=== PATIENT | male | born 1945 | race Caucasian/White ===

== ENCOUNTER 2017-02-17 08:14 | Outpatient (CLI) | payer MEDICARE | END 2017-02-17 08:15 | disposition home or self-care (01) | DX: E78.5 Hyperlipidemia, unspecified (principal); Z12.5 Encounter for screening for malignant neoplasm of prostate | CPT/HCPCS: 36415; 80053; 80061; 85025; G0103 ==

== ENCOUNTER 2017-07-20 08:54 | Outpatient (CLI) | payer MEDICARE | END 2017-07-20 08:55 | disposition home or self-care (01) | LOC: SC 08:54 | PROVIDERS: ATTEND Specialist | DX: R06.83 Snoring (principal); G47.8 Other sleep disorders; G47.30 Sleep apnea, unspecified; G47.10 Hypersomnia, unspecified; K21.9 Gastro-esophageal reflux disease without esophagitis | CPT/HCPCS: 99205; G0463; 99212 ==

== ENCOUNTER 2018-09-12 08:00 | Outpatient (CLI) | payer MEDICARE ==
[2018-09-12 18:54] LABS: BASOPHILS # (AUTO) 0.1 10^3/uL (0.0-0.1); BASOPHILS % (AUTO) 0.8 %; EOSINOPHILS # (AUTO) 0.3 10^3/uL (0.0-0.7); EOSINOPHILS % (AUTO) 3.5 %; HGB - HEMOGLOBIN 15.6 g/dL (14.0-18.0); LYMPHOCYTES # (AUTO) 1.8 10^3/uL (1.5-3.5); LYMPHOCYTES % (AUTO) 24.7 %; MEAN CORPUSCULAR HEMOGLOBIN 30.8 pg (27.0-31.0); MEAN CORPUSCULAR HGB CONC 34.4 g/dL (32.0-36.0); MEAN CORPUSCULAR VOLUME 89.5 fL (80.0-94.0); MEAN PLATELET VOLUME 9.4 fL (7.4-11.4); MONOCYTES # (AUTO) 0.6 10^3/uL (0.0-1.0); MONOCYTES % (AUTO) 8.3 %; NEUTROPHILS # (AUTO) 4.6 10^3/uL (1.5-6.6); NEUTROPHILS % (AUTO) 62.7 %; PLT - PLATELET COUNT 271 10^3/uL (130-450); RED BLOOD COUNT 5.07 10^6/uL (4.70-6.10); RED CELL DISTRIBUTION WIDTH 13.2 % (12.0-15.0); WHITE BLOOD COUNT 7.3 x10^3/uL (4.8-10.8)
[2018-09-12 19:10] LABS: ALBUMIN 4.2 g/dL (3.2-5.5); ALBUMIN/GLOBULIN RATIO 1.4 (1.0-2.2); ALKALINE PHOSPHATASE 77 IU/L (42-121); ALT ALANINE AMINOTRANSFERASE 29 IU/L (10-60); AST ASPARTATE AMINOTRANSFERASE 21 IU/L (10-42); BUN - BLOOD UREA NITROGEN 22 mg/dL (6-20); CALCIUM 8.8 mg/dL (8.5-10.3); CARBON DIOXIDE - CO2 26 mmol/L (21-32); CHLORIDE 104 mmol/L (101-111); CHOL/HDL RATIO 4.6 (<5.0); CHOLESTEROL 203 mg/dL; CREATININE 0.8 mg/dL (0.6-1.2); GFR - MDRD 95 (>89); GLUCOSE 103 mg/dL (70-100); HDL CHOLESTEROL 44 mg/dL; LDL CHOLESTEROL,CALCULATED 100 mg/dL; LDL/HDL RATIO 2.3 (<3.6); SODIUM 139 mmol/L (135-145); TOTAL PROTEIN 7.3 g/dL (6.7-8.2); VLDL CHOLESTEROL 59 mg/dL
== END 2018-09-12 23:59 ==
LOC: LAB.WCP 08:00
PROVIDERS: ATTEND Family Medicine
DX: E78.5 Hyperlipidemia, unspecified (principal); N40.1 Benign prostatic hyperplasia with lower urinary tract symptoms
CPT/HCPCS: 36415; 80053; 80061; 85025; G0103; 83721; 84153

== ENCOUNTER 2018-11-24 08:00 | Outpatient (CLI) | payer MEDICARE ==
[2018-11-24 12:54] LABS: BASOPHILS # (AUTO) 0.1 10^3/uL (0.0-0.1); BASOPHILS % (AUTO) 0.9 %; EOSINOPHILS # (AUTO) 0.2 10^3/uL (0.0-0.7); EOSINOPHILS % (AUTO) 2.6 %; HGB - HEMOGLOBIN 16.6 g/dL (14.0-18.0); LYMPHOCYTES # (AUTO) 2.1 10^3/uL (1.5-3.5); LYMPHOCYTES % (AUTO) 25.2 %; MEAN CORPUSCULAR HEMOGLOBIN 30.5 pg (27.0-31.0); MEAN CORPUSCULAR VOLUME 87.1 fL (80.0-94.0); MEAN PLATELET VOLUME 9.6 fL (7.4-11.4); MONOCYTES # (AUTO) 0.6 10^3/uL (0.0-1.0); MONOCYTES % (AUTO) 7.6 %; NEUTROPHILS # (AUTO) 5.3 10^3/uL (1.5-6.6); NEUTROPHILS % (AUTO) 63.7 %; PLT - PLATELET COUNT 266 10^3/uL (130-450); RED BLOOD COUNT 5.45 10^6/uL (4.70-6.10); RED CELL DISTRIBUTION WIDTH 12.9 % (12.0-15.0); WHITE BLOOD COUNT 8.3 x10^3/uL (4.8-10.8)
[2018-11-24 13:07] LABS: TROPONIN I < 0.04 ng/mL (<0.49)
[2018-11-24 13:09] LABS: CREATINE KINASE MB 2.4 ng/mL (0.6-6.3)
[2018-11-24 13:12] LABS: ALBUMIN 3.8 g/dL (3.2-5.5); ALBUMIN/GLOBULIN RATIO 1.2 (1.0-2.2); BILIRUBIN,TOTAL 0.8 mg/dL (0.2-1.0); CALCIUM 9.1 mg/dL (8.5-10.3); CREATININE 0.9 mg/dL (0.6-1.2)
== END 2018-11-24 23:59 | disposition home or self-care (01) ==
LOC: LAB.WCP 08:00
PROVIDERS: ATTEND Family Medicine
DX: R06.09 Other forms of dyspnea (principal)
CPT/HCPCS: 36415; 80053; 82553; 84443; 84484; 85025; 85379

== ENCOUNTER 2018-12-28 08:37 | Outpatient (CLI) | payer MEDICARE ==
[2018-12-28] MEDS ORDERED: REGADENOSON 0.4 MG/5 ML SYRINGE IVP ONE ×2 (09:22→15:40)
--- NOTE | 2018-12-28 12:33 | CARDIAC PROCEDURE NOTE ---
DATE OF SERVICE: 12/28/2018 Physician: Patricia Scott MD, [facility] INDICATION: Dyspnea on exertion. CARDIAC RISK FACTORS 1. Male gender. 2. Hyperlipidemia. PROCEDURE: After signing informed consent, the patient underwent a pharmaceutical stress test with nuclear myocardial perfusion imaging. RESTING HEART RATE: 79. Peak heart rate: 101. RESTING BLOOD PRESSURE: 102/60. Peak blood pressure: 120/68. The patient underwent Lexiscan infusion. He had no side effects, except mild nausea. Oxygen saturation was 96% at peak on room air. RESTING EKG: Normal sinus rhythm, right bundle branch block, left anterior fascicular block. EKG AT [facility]: No new ischemic changes per EKG criteria. SUMMARY 1. Abnormal resting EKG. 2. No ischemic changes by EKG criteria on this pharmaceutical stress test. 3. Nuclear images reported separately. cc: Haja Thompson MD TD: 12/28/2018 12:05 MTDD
--- NOTE | 2018-12-28 16:49 | Nuclear Medicine Report ---
Reason: SORIANO Procedure Date: 12/28/2018 Accession Number: [id number] / [id number] Procedure: NM - Myocardial Perfusion STR/RST CPT Code: FULL RESULT: EXAM: SINGLE-ISOTOPE PHARMACOLOGICAL STRESS TEST WITH REGADENOSON. SINGLE-ISOTOPE AND ONE-DAY REST/STRESS MYOCARDIAL PERFUSION SCANS WITH TOMOGRAPHIC IMAGING, QUANTITATIVE ANALYSIS, WALL MOTION ANALYSIS AND CALCULATION OF EJECTION FRACTION. EXAM DATE: 12/28/2018 03:24 PM. CLINICAL HISTORY: Dyspnea on exertion. COMPARISON: None available. TECHNIQUE: After the intravenous administration of 10.6 mCi of Tc-99m sestamibi, a rest myocardial perfusion scan was done with tomography. Motion correction was applied when appropriate. After an appropriate delay, pharmacological stress was performed with the infusion of 0.4 mg regadenoson per protocol. According to protocol, 43.9 mCi of Tc-99m sestamibi was injected for stress myocardial perfusion scan. Motion correction was applied when appropriate. Gated tomographic images were obtained for wall motion analysis and computation of left ventricular ejection fraction. FINDINGS: On visual analysis, there is a partially fixed and partially reversible anteroseptal wall perfusion defect. There is decreased activity in the inferior wall, more severe on the rest images compared to the stress images. There is a moderate severity, partially fixed and partially reversible proximal to mid inferolateral wall defect. Computer analysis: Sum stress score 11 Summed rest score 7 Summed difference score 4 Wall motion analysis demonstrates no focal wall motion abnormality. The left ventricular end-diastolic volume is 62 cc. The left ventricular end-systolic volume is 10 cc. The left ventricular ejection fraction is calculated to be 84%. IMPRESSION: 1. On visual analysis, there is a moderate severity partially fixed and partially reversible anteroseptal wall perfusion defect. There is a moderate severity partially fixed and partially reversible proximal to mid inferolateral wall perfusion defect. There is a distal inferior wall perfusion defect which appears more severe on the rest images compared to the stress images. 2. Left ventricular ejection fraction of >65%. 3. Normal segmental and global wall motion. 4. Normal left ventricular cavity size, no change with stress. 5. Based on computer analysis, moderately abnormal study with mild ischemia. [facility]
== END 2018-12-28 08:38 | disposition home or self-care (01) ==
LOC: DI 08:37
PROVIDERS: ATTEND Family Medicine
DX: R06.09 Other forms of dyspnea (principal); R94.31 Abnormal electrocardiogram [ECG] [EKG]
CPT/HCPCS: 78452; 93016; 93017; 93018; A9500; J2785

== ENCOUNTER 2019-01-19 09:03 | Outpatient (CLI) | payer MEDICARE ==
[~2019-01-19 09:03] MED LIST: ALBUTEROL NEB 2.5 MG/3 ML INH ONE
== END 2019-01-19 09:04 | disposition home or self-care (01) ==
LOC: RT 09:03
PROVIDERS: ATTEND Family Medicine
DX: R06.09 Other forms of dyspnea (principal)
CPT/HCPCS: 94010; 94729

== ENCOUNTER 2019-09-21 10:16 | Outpatient (CLI) | payer OTHER, MEDICARE ==
--- NOTE | 2019-09-22 13:44 | XRAY Report ---
Reason: THORACIC BACK PAIN Procedure Date: 09/21/2019 Accession Number: [id number] / [id number] Procedure: XRN - Thoracic Spine 3 View CPT Code: Final Report FULL RESULT: EXAM: THORACIC SPINE RADIOGRAPHY EXAM DATE: 09/21/2019 11:00 AM. CLINICAL HISTORY: THORACIC BACK PAIN. COMPARISON: 09/21/2019 12:37 PM. TECHNIQUE: 2 views. FINDINGS: Alignment: Normal. No spondylolisthesis or scoliosis. Bones: No fractures or bone lesions. Disks: Multilevel moderate disk height loss with disk osteophytes. Soft Tissues: Normal. The visualized lungs and cardiomediastinal silhouette are normal. IMPRESSION: 1. No evidence for acute fracture or dislocation of the thoracic spine. 2. Multilevel moderate degenerative changes in the thoracic spine. [facility]
== END 2019-09-21 10:17 | disposition home or self-care (01) ==
LOC: DI.N 10:16
PROVIDERS: ATTEND Family Medicine
DX: M51.34 Other intervertebral disc degeneration, thoracic region (principal)
CPT/HCPCS: 72072

== ENCOUNTER 2019-09-26 10:03 | Outpatient (CLI) | payer OTHER, MEDICARE ==
--- NOTE | 2019-09-26 16:10 | XRAY Report ---
Reason: ABDOMINAL DISCOMFORT Procedure Date: 09/26/2019 Accession Number: [id number] / [id number] Procedure: XRN - Abdomen 2 View X-Ray CPT Code: 56517 Final Report FULL RESULT: EXAM: ABDOMEN RADIOGRAPHY EXAM DATE: 09/26/2019 10:38 AM. CLINICAL HISTORY: Abdominal discomfort. COMPARISON: None. TECHNIQUE: 2 views. FINDINGS: Lung Bases: Unremarkable. Bowel Gas Pattern: Overall paucity of small bowel gas with air-fluid level seen in the stomach. Normal stool content is seen within the ascending colon. No significant stool burden is seen in the descending, sigmoid colon or rectal vault. This bowel gas pattern is formally nonobstructive but very early small bowel obstruction would be difficult to exclude. Free Air: None. Other: None. IMPRESSION: Formally nonobstructive bowel gas pattern as described. Early bowel obstruction would be difficult to exclude. Recommendation: In the setting of traumatic injury 4 days ago with 30 pound weight gain and hard distended abdomen, the radiographic absence of bowel gas with absence of free air is most concerning for injured solid organ injury such as splenic laceration or genitourinary compromise with urinoma. CT abdomen pelvis with intravenous contrast should be considered unless the physical examination is reassuring. [facility]
== END 2019-09-26 10:04 | disposition home or self-care (01) ==
LOC: DI.N 10:03
PROVIDERS: ATTEND Family Medicine
DX: R10.9 Unspecified abdominal pain (principal)
CPT/HCPCS: 74019

== ENCOUNTER 2019-10-06 14:03 | Outpatient (CLI) | payer MEDICARE, OTHER ==
--- NOTE | 2019-10-06 15:28 | XRAY Report ---
Reason: RIB PAIN, RIGHT SIDED/FOOT PAIN, LEFT Procedure Date: 10/06/2019 Accession Number: [id number] / [id number] Procedure: XR - Foot 3 View LT CPT Code: Final Report FULL RESULT: EXAM: LEFT FOOT RADIOGRAPHY EXAM DATE: 10/06/2019 03:04 PM. CLINICAL HISTORY: RIB PAIN, RIGHT SIDED/FOOT PAIN, LEFT. COMPARISON: FOOT 2 VIEW RT 08/09/2018 9:30 AM. TECHNIQUE: 3 views. FINDINGS: Bones: Pes planus No fractures or bone lesions. Joints: First metatarsophalangeal joint osteophyte, mild joint space narrowing. Dorsal spurring metatarsal tarsal junction Soft Tissues: Normal. No soft tissue swelling. IMPRESSION: Mild DJD first metatarsophalangeal joint RAD[facility]
--- NOTE | 2019-10-06 15:33 | XRAY Report ---
Reason: RIGHT SIDED RIB PAIN Procedure Date: 10/06/2019 Accession Number: [id number] / [id number] Procedure: XR - Ribs w/PA Chest RT CPT Code: Final Report FULL RESULT: EXAM: RIGHT RIB RADIOGRAPHY EXAM DATE: 10/06/2019 03:05 PM. CLINICAL HISTORY: Fall, pain. COMPARISON: THORACIC SPINE 3 VIEW 09/21/2019 11:00 AM CHEST 2 VIEW PA/LAT 11/24/2018 8:58 AM. TECHNIQUE: 1 view of the chest and 2 views of the ribs. FINDINGS: Bones: Minimally displaced fractures of right posterior seventh, eighth, ninth, and 10th ribs. Degenerative changes. Lungs: Clear. No effusion or pneumothorax. Mild atelectasis in right mid lung zone. Mediastinum: Heart and mediastinal contours are unremarkable. Upper lobe vessels not distended. Other: None. IMPRESSION: Multiple right rib fractures. [facility]
== END 2019-10-06 14:04 | disposition home or self-care (01) ==
LOC: DI 14:03
PROVIDERS: ATTEND Family Medicine
DX: S22.41XA Multiple fractures of ribs, right side, initial encounter for closed fracture (principal); M19.072 Primary osteoarthritis, left ankle and foot

== ENCOUNTER 2019-10-17 13:03 | Outpatient (CLI) | payer OTHER ==
--- NOTE | 2019-10-18 09:34 | XRAY Report ---
Reason: localized swelling, mas and lump neck Procedure Date: 10/17/2019 Accession Number: [id number] / [id number] Procedure: XRN - Cervical Spine 2 View CPT Code: Final Report FULL RESULT: EXAM: CERVICAL SPINE RADIOGRAPHY EXAM DATE: 10/17/2019 01:20 PM. CLINICAL HISTORY: Localized swelling, mass and lump neck. COMPARISONS: None. TECHNIQUE: 3 views. FINDINGS: Alignment: There is straightening of the normal cervical lordosis with no listhesis or scoliosis. Odontoid view is within normal limits. Bones: The cervical vertebral bodies and posterior elements are well visualized from the skull base through C7-T1. No fractures or bone lesions. Disks: There are multilevel degenerative changes with loss of disk space height and marginal osteophytosis which are most pronounced at C3, C4 and C5, at least moderate. Facets: The mid lower cervical spine demonstrates prominent facet arthropathy and lateral mass hypertrophy Soft Tissues: Normal. No prevertebral soft tissue swelling. The visualized lung apices are clear. IMPRESSION: Degenerative changes as described. [facility]
== END 2019-10-17 13:04 | disposition home or self-care (01) ==
LOC: DI.N 13:03
PROVIDERS: ATTEND Family Medicine
DX: M50.31 Other cervical disc degeneration, high cervical region (principal); M47.812 Spondylosis without myelopathy or radiculopathy, cervical region
CPT/HCPCS: 72040

== ENCOUNTER 2019-12-29 08:47 | Outpatient (CLI) | payer OTHER ==
[2019-12-29 13:06] LABS: BASOPHILS % (AUTO) 0.6 %; EOSINOPHILS # (AUTO) 0.5 10^3/uL (0.0-0.7); EOSINOPHILS % (AUTO) 8.5 %; HGB - HEMOGLOBIN 15.8 g/dL (14.0-18.0); LYMPHOCYTES # (AUTO) 1.7 10^3/uL (1.5-3.5); LYMPHOCYTES % (AUTO) 27.4 %; MEAN CORPUSCULAR HGB CONC 32.6 g/dL (32.0-36.0); MEAN PLATELET VOLUME 10.8 fL (7.4-11.4); MONOCYTES # (AUTO) 0.6 10^3/uL (0.0-1.0); MONOCYTES % (AUTO) 9.9 %; NEUTROPHILS # (AUTO) 3.3 10^3/uL (1.5-6.6); NEUTROPHILS % (AUTO) 53.1 %; PLT - PLATELET COUNT 282 10^3/uL (130-450); RED BLOOD COUNT 5.45 10^6/uL (4.70-6.10); RED CELL DISTRIBUTION WIDTH 12.9 % (12.0-15.0); WHITE BLOOD COUNT 6.2 x10^3/uL (4.8-10.8)
[2019-12-29 13:22] LABS: HB2 TOTAL 16.2 g/dL; HEMOGLOBIN A1C 0.58 g/dL; HEMOGLOBIN A1C % 5.4 % (4.6-6.2)
[2019-12-29 13:27] LABS: ALBUMIN 4.3 g/dL (3.2-5.5); ALBUMIN/GLOBULIN RATIO 1.4 (1.0-2.2); ALKALINE PHOSPHATASE 84 IU/L (42-121); ALT ALANINE AMINOTRANSFERASE 32 IU/L (10-60); AST ASPARTATE AMINOTRANSFERASE 21 IU/L (10-42); BILIRUBIN,TOTAL 1.2 mg/dL (0.2-1.0); BUN - BLOOD UREA NITROGEN 26 mg/dL (6-20); CALCIUM 8.9 mg/dL (8.5-10.3); CARBON DIOXIDE - CO2 28 mmol/L (21-32); CHLORIDE 104 mmol/L (101-111); CHOL/HDL RATIO 5.1 (<5.0); CHOLESTEROL 240 mg/dL; GFR - MDRD 73 (>89); GLUCOSE 76 mg/dL (70-100); HDL CHOLESTEROL 47 mg/dL; LDL CHOLESTEROL,CALCULATED 159 mg/dL; LDL/HDL RATIO 3.4 (<3.6); SODIUM 139 mmol/L (135-145); TOTAL PROTEIN 7.3 g/dL (6.7-8.2); VLDL CHOLESTEROL 34 mg/dL
== END 2019-12-29 23:59 | disposition home or self-care (01) ==
LOC: LAB.N 08:47
PROVIDERS: ATTEND Family Medicine
DX: E78.5 Hyperlipidemia, unspecified (principal); Z83.3 Family history of diabetes mellitus
CPT/HCPCS: 36415; 80053; 80061; 83036; 83721; 84443; 85025

== ENCOUNTER 2020-12-18 07:00 | Outpatient (CLI) | payer MEDICARE, OTHER ==
--- NOTE | 2020-12-18 08:58 | XRAY Report ---
PROCEDURE: Toe(s) RT INDICATIONS: TOE PX TECHNIQUE: 2 views of the first toe(s) acquired. COMPARISON: Right foot plain films 08/09/2018 FINDINGS: Bones: No fractures or dislocations. No suspicious bony lesions. Note is made of mild osteoarthrit is at the first MTP joint as indicated by mild joint space narrowing. Soft tissues: No suspicious soft tissue densities. IMPRESSION: No trauma found. Mild osteoarthritis first MTP joint. Reviewed by: Merrill Georges MD on 12/18/2020 8:57 AM PST Approved by: Merrill Georges MD on 12/18/2020 8:57 AM PST Station ID: [id number]
== END 2020-12-18 23:59 | disposition home or self-care (01) ==
LOC: DI.N 07:00
PROVIDERS: ATTEND Family Medicine
DX: M79.674 Pain in right toe(s) (principal); M19.071 Primary osteoarthritis, right ankle and foot

== ENCOUNTER 2020-12-18 08:00 | Outpatient (CLI) | payer OTHER ==
[2020-12-18 13:50] LABS: CALCIUM 8.9 mg/dL (8.5-10.3); URIC ACID 6.5 mg/dL (2.6-7.2)
== END 2020-12-18 23:59 | disposition home or self-care (01) ==
LOC: LAB.N 08:00
PROVIDERS: ATTEND Family Medicine
DX: M79.676 Pain in unspecified toe(s) (principal)
CPT/HCPCS: 36415; 80048; 84550

== ENCOUNTER 2021-08-22 08:00 | Outpatient (CLI) | payer MEDICARE ==
[2021-08-22 17:47] LABS: BASOPHILS # (AUTO) 0.1 10^3/uL (0.0-0.1); BASOPHILS % (AUTO) 1.1 %; EOSINOPHILS # (AUTO) 0.6 10^3/uL (0.0-0.7); EOSINOPHILS % (AUTO) 8.4 %; HCT - HEMATOCRIT 46.2 % (42.0-52.0); HGB - HEMOGLOBIN 14.5 g/dL (14.0-18.0); LYMPHOCYTES # (AUTO) 1.6 10^3/uL (1.5-3.5); MEAN CORPUSCULAR HEMOGLOBIN 28.2 pg (27.0-31.0); MEAN CORPUSCULAR HGB CONC 31.4 g/dL (32.0-36.0); MEAN CORPUSCULAR VOLUME 89.7 fL (80.0-94.0); MEAN PLATELET VOLUME 10.6 fL (7.4-11.4); MONOCYTES # (AUTO) 0.7 10^3/uL (0.0-1.0); NEUTROPHILS # (AUTO) 3.6 10^3/uL (1.5-6.6); NEUTROPHILS % (AUTO) 54.3 %; PLT - PLATELET COUNT 336 10^3/uL (130-450); RED BLOOD COUNT 5.15 10^6/uL (4.70-6.10); RED CELL DISTRIBUTION WIDTH 12.7 % (12.0-15.0); WHITE BLOOD COUNT 6.6 x10^3/uL (4.8-10.8)
[2021-08-22 18:22] LABS: ALBUMIN 4.2 g/dL (3.2-5.5); ALBUMIN/GLOBULIN RATIO 1.1 (1.0-2.2); ALKALINE PHOSPHATASE 92 IU/L (42-121); ALT ALANINE AMINOTRANSFERASE 19 IU/L (10-60); AST ASPARTATE AMINOTRANSFERASE 18 IU/L (10-42); BILIRUBIN,TOTAL 0.5 mg/dL (0.2-1.0); BUN - BLOOD UREA NITROGEN 18 mg/dL (6-20); CALCIUM 9.6 mg/dL (8.5-10.3); CARBON DIOXIDE - CO2 28 mmol/L (21-32); CHLORIDE 103 mmol/L (101-111); CHOL/HDL RATIO 4.4 (<5.0); CHOLESTEROL 213 mg/dL; CREATININE 0.9 mg/dL (0.6-1.2); GFR - MDRD 82 (>89); GLUCOSE 100 mg/dL (70-100); HDL CHOLESTEROL 48 mg/dL; LDL CHOLESTEROL,CALCULATED 134 mg/dL; LDL/HDL RATIO 2.8 (<3.6); POTASSIUM 4.3 mmol/L (3.5-5.0); SODIUM 143 mmol/L (135-145); TOTAL PROTEIN 7.9 g/dL (6.7-8.2); TRIGLYCERIDES 155 mg/dL; VLDL CHOLESTEROL 31 mg/dL
== END 2021-08-22 23:59 | disposition home or self-care (01) ==
LOC: LAB.WCP 08:00
PROVIDERS: ATTEND Family Medicine
DX: E78.5 Hyperlipidemia, unspecified (principal); I10 Essential (primary) hypertension
CPT/HCPCS: 36415; 80053; 80061; 83721; 85025

== ENCOUNTER 2022-05-12 08:56 | Outpatient (CLI) | payer OTHER ==
[2022-05-12 12:01] LABS: BASOPHILS # (AUTO) 0.1 10^3/uL (0.0-0.1); BASOPHILS % (AUTO) 1.1 %; EOSINOPHILS # (AUTO) 0.7 10^3/uL (0.0-0.7); EOSINOPHILS % (AUTO) 9.7 %; HCT - HEMATOCRIT 46.5 % (42.0-52.0); HGB - HEMOGLOBIN 15.6 g/dL (14.0-18.0); LYMPHOCYTES # (AUTO) 1.9 10^3/uL (1.5-3.5); LYMPHOCYTES % (AUTO) 26.3 %; MEAN CORPUSCULAR HEMOGLOBIN 30.2 pg (27.0-31.0); MEAN CORPUSCULAR HGB CONC 33.5 g/dL (32.0-36.0); MEAN CORPUSCULAR VOLUME 89.9 fL (80.0-94.0); MEAN PLATELET VOLUME 11.3 fL (7.4-11.4); MONOCYTES # (AUTO) 0.6 10^3/uL (0.0-1.0); MONOCYTES % (AUTO) 8.8 %; NEUTROPHILS # (AUTO) 3.9 10^3/uL (1.5-6.6); PLT - PLATELET COUNT 284 10^3/uL (130-450); RED BLOOD COUNT 5.17 10^6/uL (4.70-6.10); WHITE BLOOD COUNT 7.1 x10^3/uL (4.8-10.8)
[2022-05-12 12:06] LABS: BILIRUBIN,URINE NEGATIVE (NEGATIVE); GLUCOSE, URINE (UA) NEGATIVE (NEGATIVE); KETONES,URINE (UA) NEGATIVE (NEGATIVE); LEUKOCYTE ESTERASE, URINE NEGATIVE (NEGATIVE); NITRITE,URINE NEGATIVE (NEGATIVE); OCCULT BLOOD,URINE MODERATE (NEGATIVE); PROTEIN,URINE NEGATIVE (NEGATIVE); UROBILINOGEN,URINE 1 (NORMAL) E.U./dL (NORMAL)
[2022-05-12 12:07] LABS: CLARITY,URINE CLEAR (CLEAR)
[2022-05-12 12:23] LABS: RBC,URINE 0-5 /HPF (0-5); WBC,URINE 0-3 /HPF (0-3)
[2022-05-12 12:24] LABS: BACTERIA,URINE Rare /HPF (None Seen); SQUAMOUS EPITHELIAL CELL,UR NONE SEEN (<= Few)
[2022-05-12 12:26] LABS: ALBUMIN 4.4 g/dL (3.2-5.5); ALBUMIN/GLOBULIN RATIO 1.5 (1.0-2.2); ALKALINE PHOSPHATASE 92 IU/L (42-121); ALT ALANINE AMINOTRANSFERASE 30 IU/L (10-60); AST ASPARTATE AMINOTRANSFERASE 21 IU/L (10-42); BILIRUBIN,TOTAL 0.8 mg/dL (0.2-1.0); BUN - BLOOD UREA NITROGEN 19 mg/dL (6-20); CALCIUM 9.4 mg/dL (8.5-10.3); CARBON DIOXIDE - CO2 28 mmol/L (21-32); CHLORIDE 104 mmol/L (101-111); CHOL/HDL RATIO 4.2 (<5.0); CHOLESTEROL 220 mg/dL; CREATININE 1.1 mg/dL (0.6-1.2); GFR - MDRD 65 (>89); GLUCOSE 100 mg/dL (70-100); HDL CHOLESTEROL 53 mg/dL; LDL CHOLESTEROL,CALCULATED 149 mg/dL; LDL/HDL RATIO 2.8 (<3.6); POTASSIUM 4.6 mmol/L (3.5-5.0); SODIUM 140 mmol/L (135-145); TOTAL PROTEIN 7.3 g/dL (6.7-8.2); TRIGLYCERIDES 92 mg/dL; VLDL CHOLESTEROL 18 mg/dL
[2022-05-12 12:39] LABS: THYROID STIMULATING HORMONE 1.9 uIU/mL (0.34-5.60)
== END 2022-05-12 08:57 | disposition home or self-care (01) ==
LOC: LAB.N 08:56
PROVIDERS: ATTEND Nurse Practitioner
DX: E78.5 Hyperlipidemia, unspecified (principal); R31.9 Hematuria, unspecified
CPT/HCPCS: 36415; 80053; 80061; 81001; 81003; 83721; 84153; 84443; 85025; 87086

== ENCOUNTER 2022-09-02 09:58 | Outpatient (CLI) | payer OTHER ==
[2022-09-02 11:55] LABS: BASOPHILS # (AUTO) 0.1 10^3/uL (0.0-0.1); BASOPHILS % (AUTO) 0.8 %; EOSINOPHILS # (AUTO) 0.7 10^3/uL (0.0-0.7); EOSINOPHILS % (AUTO) 9.5 %; HCT - HEMATOCRIT 49.5 % (42.0-52.0); HGB - HEMOGLOBIN 16.3 g/dL (14.0-18.0); LYMPHOCYTES # (AUTO) 2.2 10^3/uL (1.5-3.5); LYMPHOCYTES % (AUTO) 29.9 %; MEAN CORPUSCULAR HEMOGLOBIN 28.8 pg (27.0-31.0); MEAN CORPUSCULAR HGB CONC 32.9 g/dL (32.0-36.0); MEAN CORPUSCULAR VOLUME 87.5 fL (80.0-94.0); MEAN PLATELET VOLUME 10.7 fL (7.4-11.4); MONOCYTES # (AUTO) 0.8 10^3/uL (0.0-1.0); MONOCYTES % (AUTO) 10.3 %; NEUTROPHILS # (AUTO) 3.6 10^3/uL (1.5-6.6); NEUTROPHILS % (AUTO) 49.2 %; PLT - PLATELET COUNT 274 10^3/uL (130-450); PT - PROTHROMBIN TIME 11.5 secs (9.9-12.6); RED BLOOD COUNT 5.66 10^6/uL (4.70-6.10); RED CELL DISTRIBUTION WIDTH 12.8 % (12.0-15.0); WHITE BLOOD COUNT 7.4 x10^3/uL (4.8-10.8)
[2022-09-02 12:02] LABS: ESTIMATED AVERAGE GLUCOSE 114 mg/dL (70-100); HEMOGLOBIN A1c% 5.6 % (4.27-6.07)
[2022-09-02 12:03] LABS: PARTIAL THROMBOPLASTIN TIME 33.7 secs (24.9-33.3)
[2022-09-02 12:20] LABS: ALBUMIN 4.4 g/dL (3.2-5.5); ALBUMIN/GLOBULIN RATIO 1.3 (1.0-2.2); BILIRUBIN,TOTAL 0.8 mg/dL (0.2-1.0); CALCIUM 9.1 mg/dL (8.5-10.3); POTASSIUM 4.2 mmol/L (3.5-5.0); TOTAL PROTEIN 7.8 g/dL (6.7-8.2)
== END 2022-09-02 09:59 | disposition home or self-care (01) ==
LOC: LAB.N 09:58
PROVIDERS: ATTEND Nurse Practitioner
DX: Z01.812 Encounter for preprocedural laboratory examination (principal); I10 Essential (primary) hypertension
CPT/HCPCS: 36415; 80053; 83036; 85025; 85610; 85730; 87640

== ENCOUNTER → 2023-02-23 15:27 | Outpatient (CLI) | payer OTHER ==
--- NOTE | 2023-02-23 17:30 | XRAY Report ---
PROCEDURE: Knee 4 View BILAT INDICATIONS: BILAT KNEE PAIN TECHNIQUE: 4 views of the bilateral knee(s) were acquired. COMPARISON: None. FINDINGS: Bones: There is prior right total knee arthroplasty with anatomic right knee alignment. Prior internet manager al fixation of left proximal tibia is seen with old healed proximal tibial and fibular fractures. No evidence of hardware loosening or failure is seen. No acute fracture or dislocation. Moderate to wilfredo re tricompartmental osteoarthritis in left knee is noted most notably in lateral femoral tibial carine rtment. No suspicious bony lesions. Soft tissues: There are small bilateral suprapatellar joint effusion. No suspicious soft tissue calc ifications or masses. IMPRESSION: 1. Prior right total knee arthroplasty with anatomic right knee alignment. No evidence of hardware lo osening or failure. No fracture or dislocation. Small joint effusion. 2. Prior internal fixation of left proximal tibia with old healed left tibial and fibular shaft fract ures. No evidence of hardware loosening or failure. No acute fracture or dislocation. Small joint eff usion. Moderate to severe tricompartmental osteoarthritis most notably in lateral femoral tibial comp artment. Reviewed by: Manuel Rodriguez MD on 02/23/2023 5:29 PM PDT Approved by: Manuel Rodriguez MD on 02/23/2023 5:29 PM PDT Station ID: [id number]
== END | disposition home or self-care (01) ==
LOC: DI.WOS 15:27
PROVIDERS: ATTEND Orthopaedic Surgery
DX: M17.0 Bilateral primary osteoarthritis of knee (principal); Z96.641 Presence of right artificial hip joint; M25.461 Effusion, right knee; M25.462 Effusion, left knee

== ENCOUNTER 2023-12-06 11:55 | Outpatient (CLI) | payer OTHER ==
[2023-12-06 17:57] LABS: BASOPHILS # (AUTO) 0.1 10^3/uL (0.0-0.1); EOSINOPHILS # (AUTO) 1.1 10^3/uL (0.0-0.7); EOSINOPHILS % (AUTO) 17.1 %; HCT - HEMATOCRIT 40.8 % (42.0-52.0); HGB - HEMOGLOBIN 13.4 g/dL (14.0-18.0); LYMPHOCYTES # (AUTO) 1.5 10^3/uL (1.5-3.5); LYMPHOCYTES % (AUTO) 23.2 %; MEAN CORPUSCULAR HEMOGLOBIN 29.1 pg (27.0-31.0); MEAN CORPUSCULAR HGB CONC 32.8 g/dL (32.0-36.0); MEAN CORPUSCULAR VOLUME 88.5 fL (80.0-94.0); MEAN PLATELET VOLUME 11.1 fL (7.4-11.4); MONOCYTES # (AUTO) 0.6 10^3/uL (0.0-1.0); NEUTROPHILS # (AUTO) 3.1 10^3/uL (1.5-6.6); NEUTROPHILS % (AUTO) 48.5 %; PLT - PLATELET COUNT 236 10^3/uL (130-450); RED BLOOD COUNT 4.61 10^6/uL (4.70-6.10); RED CELL DISTRIBUTION WIDTH 12.5 % (12.0-15.0); WHITE BLOOD COUNT 6.3 x10^3/uL (4.8-10.8)
[2023-12-06 18:30] LABS: SLIDE REVIEW? Indicated
[2023-12-06 18:45] LABS: RHEUMATOID FACTOR NEGATIVE (Negative)
[2023-12-06 18:57] LABS: ALBUMIN 3.9 g/dL (3.2-5.5); ALBUMIN/GLOBULIN RATIO 1.3 (1.0-2.2); ALKALINE PHOSPHATASE 92 IU/L (42-121); ALT ALANINE AMINOTRANSFERASE 14 IU/L (10-60); AST ASPARTATE AMINOTRANSFERASE 16 IU/L (10-42); BILIRUBIN,TOTAL 0.8 mg/dL (0.2-1.0); BUN - BLOOD UREA NITROGEN 22 mg/dL (6-20); CARBON DIOXIDE - CO2 30 mmol/L (21-32); CHLORIDE 106 mmol/L (101-111); CHOLESTEROL 122 mg/dL; CRP - C-REACTIVE PROTEIN < 0.5 mg/dL (<0.5); GFR - MDRD 72 (>89); GLUCOSE 90 mg/dL (74-104); HDL CHOLESTEROL 41 mg/dL; LDL CHOLESTEROL,CALCULATED 65 mg/dL; LDL/HDL RATIO 1.6 (<3.6); POTASSIUM 4.6 mmol/L (3.5-4.5); SODIUM 140 mmol/L (135-145); TOTAL PROTEIN 6.8 g/dL (6.4-8.9); TRIGLYCERIDES 81 mg/dL (48-352); URIC ACID 6.4 mg/dL (4.4-7.6); VLDL CHOLESTEROL 16 mg/dL
[2023-12-06 19:04] LABS: THYROID STIMULATING HORMONE 1.73 uIU/mL (0.34-5.60)
[2023-12-06 20:19] LABS: DIFFERENTIAL COMMENT MANUAL=AUTO DIFF; PLATELET ESTIMATE, MANUAL NORMAL (130-450,000) (NORMAL); PLATELET MORPHOLOGY NORMAL APPEARANCE (NORMAL); RBC MORPHOLOGY (MULTIPLE) NORMAL APPEARANCE (NORMAL)
[2023-12-07 19:07] LABS: ANTI-DNA (DS) AB QN <1 IU/mL (0-9)
[2023-12-08 00:08] LABS: CYCLIC CITRULLINATED PEP IGG/A 6 units (0-19)
[2023-12-08 15:09] LABS: ANTINUCLEAR ANTIBODIES IFA Negative (.)
== END 2023-12-06 11:56 | disposition home or self-care (01) ==
LOC: LAB.N 11:55
PROVIDERS: ATTEND Nurse Practitioner
DX: E78.5 Hyperlipidemia, unspecified (principal); R53.83 Other fatigue; M13.10 Monoarthritis, not elsewhere classified, unspecified site
CPT/HCPCS: 36415; 80053; 80061; 83721; 84443; 84550; 85025; 85651; 86038; 86140; 86200; 86225; 86430